=== PATIENT | female | born 1990 | race Caucasian/White ===

== ENCOUNTER → 2023-06-06 07:54 | Outpatient (REF) | payer BC, SELFPAY | LOC: PNTC 07:54 | PROVIDERS: ATTENDING PHYSICIAN Obstetrics & Gynecology | DX: O09.819 Supervision of pregnancy resulting from assisted reproductive technology, unspecified trimester (principal) | CPT/HCPCS: 76805 ==

== ENCOUNTER → 2023-07-04 13:30 | Outpatient (REF) | payer BC, SELFPAY | LOC: PNTC 13:30 | PROVIDERS: ATTENDING PHYSICIAN Obstetrics & Gynecology | DX: O09.819 Supervision of pregnancy resulting from assisted reproductive technology, unspecified trimester (principal) | CPT/HCPCS: 76811 ==

== ENCOUNTER → 2023-07-12 07:26 | Outpatient (REF) | payer BC, SELFPAY | LOC: PNTC 07:26 | PROVIDERS: ATTENDING PHYSICIAN Obstetrics & Gynecology | DX: O09.819 Supervision of pregnancy resulting from assisted reproductive technology, unspecified trimester (principal); O99.210 Obesity complicating pregnancy, unspecified trimester | CPT/HCPCS: 76815 ==

== ENCOUNTER 2023-08-02 17:14 | Observation (INO) | payer BC, SELFPAY ==
[2023-08-02 17:30] VITALS: BP 122/79; BMI 33.3
== END 2023-08-02 18:22 | disposition home or self-care (01) ==
LOC: LDRP 17:14
PROVIDERS: ADMITTING PHYSICIAN Obstetrics & Gynecology
DX: O36.8120 Decreased fetal movements, second trimester, not applicable or unspecified (principal); Z3A.24 24 weeks gestation of pregnancy; O99.282 Endocrine, nutritional and metabolic diseases complicating pregnancy, second trimester; E28.2 Polycystic ovarian syndrome; O09.812 Supervision of pregnancy resulting from assisted reproductive technology, second trimester
CPT/HCPCS: 59025; G0378

== ENCOUNTER → 2023-08-23 06:58 | Outpatient (REF) | payer BC, SELFPAY | LOC: PNTC 06:58 | PROVIDERS: ATTENDING PHYSICIAN Obstetrics & Gynecology | DX: O99.210 Obesity complicating pregnancy, unspecified trimester (principal); O09.819 Supervision of pregnancy resulting from assisted reproductive technology, unspecified trimester | CPT/HCPCS: 76816 ==

== ENCOUNTER → 2023-10-04 06:58 | Outpatient (REF) | payer BC, SELFPAY | LOC: PNTC 06:58 | PROVIDERS: ATTENDING PHYSICIAN Obstetrics & Gynecology | DX: O09.819 Supervision of pregnancy resulting from assisted reproductive technology, unspecified trimester (principal); O99.210 Obesity complicating pregnancy, unspecified trimester | CPT/HCPCS: 76816 ==

== ENCOUNTER → 2023-10-25 07:47 | Outpatient (REF) | payer BC, SELFPAY | LOC: PNTC 07:47 | PROVIDERS: ATTENDING PHYSICIAN Obstetrics & Gynecology | DX: O99.210 Obesity complicating pregnancy, unspecified trimester (principal); O09.819 Supervision of pregnancy resulting from assisted reproductive technology, unspecified trimester | CPT/HCPCS: 59025 ==

== ENCOUNTER 2023-11-01 07:35 | Inpatient (IN) | payer BC, SELFPAY ==
[2023-11-01 07:59] VITALS: BMI 38.6
[2023-11-01 09:38] LABS: % Basophils 0.3 % (0-2); % Eosinophils 0.8 % (0-6); % Immature Granulocytes 0.8 % (0-0.5); % Lymphocytes 14.9 % (20.5-51.1); % Monocytes 6.6 % (1.7-9.3); % Neutrophils 76.6 % (42.2-75.2); Absolute Eosinophils 0.1 10^3/uL (0-0.7); Absolute Immature Granulocytes 0.1 10^3/uL (0-0.05); Absolute Lymphocytes 1.6 10^3/uL (1.2-3.4); Absolute Monocytes 0.7 10^3/uL (0.1-0.6); Absolute Neutrophils 8.4 10^3/uL (1.4-6.5); Hematocrit 37.6 % (37.0-47.0); Hemoglobin 13.4 g/dL (12.0-16.0); Mean Corp Hgb Conc. 35.6 g/dL (33.0-37.0); Mean Corpuscular Hgb 31.8 pg (27.0-31.0); Mean Corpuscular Volume 89.1 fL (81.0-99.0); Nucleated Red Blood Cells % 0 %; Platelet Count 123 10^3/uL (130-400); Red Blood Cell Count 4.22 10^6/uL (4.20-5.40); Red Cell Dist. Width 13.2 % (11.5-14.5)
[2023-11-01 09:49] LABS: ALT (SGPT) 12 U/L (0-35); AST (SGOT) 24 U/L (14-36); Albumin 3.2 g/dl (3.5-5.0); Alkaline Phosphatase 224 U/L (38-126); Blood Urea Nitrogen 12 mg/dl (7-17); Calcium 9.5 mg/dl (8.4-10.2); Carbon Dioxide 18 mmol/L (22-30); Chloride 109 mmol/L (98-107); Estimated Creatinine Clearance > 125 ml/min; Glucose 85 mg/dl (70-99); Sodium 134 mmol/L (135-145); Total Protein 5.8 g/dl (6.3-8.2); eGFR > 60.00
[2023-11-01 10:54] LABS: Protein/creatinine Ratio 0.2; Urine Protein 10 mg/dl
[2023-11-01] MEDS: CYTOTEC 50 MICROGRAM VAG (11:32)
[2023-11-01] MEDS: CYTOTEC 50 MICROGRAM PO ×2 (17:23→21:16)
[2023-11-01 18:10] VITALS: BP 139/84
[2023-11-01] MEDS: LR 1000 IV (19:00)
[2023-11-02] MEDS: CYTOTEC 50 MICROGRAM PO ×3 (01:09→09:06)
[2023-11-02] MEDS: CYTOTEC PO (14:39)
[2023-11-02] MEDS: PITOCIN 30 UNITS/NSS 500 ML IV (14:54)
[2023-11-02] MEDS: LR 1000 IV (14:54)
[2023-11-02] MEDS: MORPHINE SULFATE 2 MG IV (21:48)
[2023-11-02] MEDS: SUBLIMAZE 100 MCG EPIDURAL (23:06)
[2023-11-02] MEDS: FENTANYL/BUPIVACAINE 100 EPIDURAL (23:06)
[2023-11-03] MEDS: TUMS 2 TABLET PO (03:21)
[2023-11-03] MEDS: LR 1000 IV (05:48)
[2023-11-03] MEDS: FENTANYL/BUPIVACAINE 100 EPIDURAL (05:49)
[2023-11-03] MEDS: ANCEF 10 IV (08:28)
[2023-11-03] MEDS: TYLENOL 1000 MG PO (08:28)
[2023-11-03] MEDS: BICITRA 30 ML PO (08:28)
[2023-11-03] MEDS: ZITHROMAX INFUSION 250 IV (08:47)
[2023-11-03 09:16] LABS: Cord ABG Comment CORD BLOOD
[2023-11-03 09:22] LABS: B.E. Cord ABG -3.6 mMOL/L; HCO3 Cord ABG 24.6 mmol/L; O2 Saturation % Cord ABG 14.8 %; PCO2 Cord ABG 56 mmHg; PO2 Cord ABG 10 mmHg; pH Cord ABG 7.25
[2023-11-03 09:25] LABS: HCO3 Cord ABG 22.6 mmol/L; O2 Saturation % Cord ABG 31.8 %; PCO2 Cord ABG 46 mmHg; PO2 Cord ABG 19 mmHg
[2023-11-03] MEDS: TORADOL 15 MG IV ×2 (11:25→17:57)
[2023-11-04] MEDS: TORADOL 15 MG IV ×2 (00:10→06:27)
[2023-11-04 05:08] LABS: Hematocrit 30.1 % (37.0-47.0); Hemoglobin 10.7 g/dL (12.0-16.0); Mean Corp Hgb Conc. 35.5 g/dL (33.0-37.0); Mean Corpuscular Hgb 32.1 pg (27.0-31.0); Mean Corpuscular Volume 90.4 fL (81.0-99.0); Platelet Count 115 10^3/uL (130-400); Red Blood Cell Count 3.33 10^6/uL (4.20-5.40); Red Cell Dist. Width 13.2 % (11.5-14.5); White Blood Cell Count 21.1 10^3/uL (4.8-10.8)
--- NOTE | 2023-11-04 08:12 | W.PN.ANS.POP ---
Anesthesia Post Operative
- Anesthesia Post Op Note
Vital Signs Stable-See Nursing Note: Yes
Airway Patent: Yes
Adequate Pain Control: Yes
Change in Mental Status: No
Current Postoperative Nausea & Vomiting: No
Anesthesia Complications: No
General Anesthetic Recall: No
Unplanned Admission: No
Post Op Hydration Adequate: Yes
[2023-11-04] MEDS: TYLENOL 650 MG PO (12:09)
[2023-11-04] MEDS: SENOKOT-S 1 TABLET PO (12:09)
[2023-11-04] MEDS: MOTRIN 600 MG PO ×2 (12:09→20:39)
[2023-11-04] MEDS: PRENATAL PLUS 1 TABLET PO (12:11)
[2023-11-04] MEDS: PERCOCET 5/325 1 TABLET PO ×2 (15:40→20:39)
[2023-11-05] MEDS: PERCOCET 5/325 1 TABLET PO ×2 (01:05→07:25)
[2023-11-05] MEDS: MOTRIN 600 MG PO ×2 (02:50→09:44)
[2023-11-05] MEDS: PRENATAL PLUS 1 TABLET PO ×2 (07:25→09:43)
[2023-11-05] MEDS: SENOKOT-S 1 TABLET PO (07:25)
[2023-11-05] MEDS: MYLICON 80 MG PO (09:43)
--- NOTE | 2023-11-05 11:32 | W.DS.TRANS ---
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
-
Discharge Instructions:
Discharge Diagnosis/Procedures term , delivered; Gestational
hypertension; s/p PLTCS
Instructions:
Stand-Alone Forms: [facility] Delivery
[facility] Hypertensive Disorders
Changes to Home Medications: Yes
Discharge Medications:
DC Medications w/original date entered in [facility]
1 tab PO DAILY 08/02/23
acetaminophen 325 mg tablet 650 mg (2 x 325 mg) PO Q4HPRN PRN mild pain #0 tabs 11/05/23
ibuprofen 600 mg tablet 600 mg PO Q6HPRN PRN cramps #60 tabs 11/05/23
oxycodone 5 mg tablet 5 mg PO Q4H PRN pain not controlled with motrin and tylenol #5 tabs 11/05/23
sennosides 8.6 mg-docusate sodium 50 mg tablet (Stool Softener-Laxative) 1 tab PO DAILYPRN PRN constipation #0 tabs 11/05/23
Home Medication Changes
You may stop taking Aspirin.
Pending Results: No
Total time spent discharging patient (in min): 20
[2023-11-07 16:07] LABS: Syphilis/T. pallidum Ab Reflex Negative (Negative)
== END 2023-11-05 17:44 | disposition home or self-care (01) | DRG 787 ==
LOC: LDRP 07:35
PROVIDERS: Obstetrics & Gynecology; ADMITTING PHYSICIAN Obstetrics & Gynecology; ATTENDING PHYSICIAN Obstetrics & Gynecology
PROC: 3E0P7VZ Introduction of Hormone into Female Reproductive, Via Natural or Artificial Opening (ICD-10-PCS; 2023-11-01)
PROC: 3E0DXGC Introduction of Other Therapeutic Substance into Mouth and Pharynx, External Approach (ICD-10-PCS; 2023-11-01)
PROC: 3E033VJ Introduction of Other Hormone into Peripheral Vein, Percutaneous Approach (ICD-10-PCS; 2023-11-02)
PROC: 10D00Z1 Extraction of Products of Conception, Low, Open Approach (ICD-10-PCS; 2023-11-03)
PROC: 6A550ZT Pheresis of Cord Blood Stem Cells, Single (ICD-10-PCS; 2023-11-03)
DX: O14.04 Mild to moderate pre-eclampsia, complicating childbirth (principal); O99.12 Other diseases of the blood and blood-forming organs and certain disorders involving the immune mechanism complicating childbirth; O99.284 Endocrine, nutritional and metabolic diseases complicating childbirth; E28.2 Polycystic ovarian syndrome; Z3A.37 37 weeks gestation of pregnancy; Z37.0 Single live birth; N97.9 Female infertility, unspecified; O99.214 Obesity complicating childbirth; O76 Abnormality in fetal heart rate and rhythm complicating labor and delivery; O77.0 Labor and delivery complicated by meconium in amniotic fluid; D69.59 Other secondary thrombocytopenia
CPT/HCPCS: 88307; 59025; 76816; 80053; 82570; 82803; 84156; 85025; 85027; 86780; 86850; 86900; 86901

== ENCOUNTER 2023-11-12 23:46 | Inpatient (IN) | payer BC, SELFPAY ==
[2023-11-12 22:51] VITALS: BP 153/90
[2023-11-12 23:01] VITALS: BP 153/88
[2023-11-12 23:06] LABS: % Basophils 0.7 % (0-2); % Eosinophils 2.3 % (0-6); % Immature Granulocytes 0.6 % (0-0.5); % Lymphocytes 38.5 % (20.5-51.1); % Monocytes 6.4 % (1.7-9.3); % Neutrophils 51.5 % (42.2-75.2); Absolute Basophils 0.1 10^3/uL (0-0.2); Absolute Eosinophils 0.2 10^3/uL (0-0.7); Absolute Immature Granulocytes 0.1 10^3/uL (0-0.05); Absolute Lymphocytes 3.4 10^3/uL (1.2-3.4); Absolute Monocytes 0.6 10^3/uL (0.1-0.6); Absolute Neutrophils 4.5 10^3/uL (1.4-6.5); Hematocrit 33.8 % (37.0-47.0); Mean Corp Hgb Conc. 35.5 g/dL (33.0-37.0); Mean Corpuscular Hgb 31.4 pg (27.0-31.0); Mean Corpuscular Volume 88.5 fL (81.0-99.0); Mean Platelet Volume 11.4 fL (7.4-10.4); Nucleated Red Blood Cells % 0 %; Platelet Count 315 10^3/uL (130-400); Red Blood Cell Count 3.82 10^6/uL (4.20-5.40); Red Cell Dist. Width 13.1 % (11.5-14.5); White Blood Cell Count 8.7 10^3/uL (4.8-10.8)
[2023-11-12 23:15] VITALS: BP 146/92
[2023-11-12 23:25] LABS: ALT (SGPT) 12 U/L (0-35); AST (SGOT) 22 U/L (14-36); Albumin 3.5 g/dl (3.5-5.0); Alkaline Phosphatase 147 U/L (38-126); Blood Urea Nitrogen 12 mg/dl (7-17); Calcium 8.7 mg/dl (8.4-10.2); Carbon Dioxide 23 mmol/L (22-30); Chloride 111 mmol/L (98-107); Estimated Creatinine Clearance > 125 ml/min; Glucose 103 mg/dl (70-99); Potassium 4.4 mmol/L (3.5-5.1); Sodium 142 mmol/L (135-145); Total Bilirubin 0.3 mg/dl (0.2-1.3); eGFR > 60.00
[2023-11-12 23:30] VITALS: BP 157/101
[2023-11-12] MEDS: HEPARIN 5000 UNITS SC (23:44)
[2023-11-12 23:45] VITALS: BP 160/98
--- NOTE | 2023-11-13 01:17 | ED TECH ---
Patient assigned to [facility] Room 212-02.
[2023-11-13 01:35] VITALS: BP 130/71; BP 153/90
[2023-11-13] MEDS: SUBLIMAZE 50 MCG IV ×2 (01:42→01:57)
[2023-11-13 01:50] VITALS: BP 145/86
[2023-11-13 01:57] VITALS: BP 149/92
[2023-11-13 02:00] VITALS: BP 154/92
[2023-11-13] MEDS: DEMEROL 12.5 MG IV ×2 (02:12→02:30)
--- NOTE | 2023-11-13 02:12 | W.IMMPOSTOP ---
Surgical Immed Post Op Note
-
Primary Surgeon: Marielena Ramírez DO
Assisting Surgeon: none
Pre-op Diagnosis: Wound dehiscence s/p LTCS POD#9
Post-op Diagnosis: same
Procedure Performed: Exploratory laparotomy, repair of wound dehiscence
Anesthesia Type: general ET Dr. Stockton
Specimen / Cultures: none
Estimated Blood Loss: 10ml
Complications: none
IVF: Invanz 1gram preop
Operative Findings: Wound dehiscence with bowel evisceration. Healthy pink appearing bowel.
Counts correct times 2.
Stable to recovery.
[2023-11-13 02:15] VITALS: BP 160/94
[2023-11-13 02:30] VITALS: BP 137/91
[2023-11-13] MEDS: NSS 1000 IV (02:43)
[2023-11-13 03:19] VITALS: BMI 34.4
[2023-11-13] MEDS: ROXICODONE 5 MG PO ×3 (05:11→21:17)
--- NOTE | 2023-11-13 06:58 | W.PN.OBG.DWH ---
Today's Communication / Plan
-
CT PE study
AM labs
SCDs.
Clear diet
OOB today
Assessment/Plan
-
A/P: S/P exp lap, repair of wound dehiscence
SOB- ordered CT PE study. EKG NSR
Postsurgical care.
Clear diet
SCDs.
Will maintain patel for now until back from PE study.
Check am labs
Subjective Data
-
Postop check:
PT reported to RN that she feels chest heaviness. No chest pain. Having some abdominal pain. No N/V.
Objective Data
-
Laboratory Results
11/13/23 08:00
11/13/23 08:00
Vital Signs
Temp Pulse Resp BP Pulse Ox
98.3 F 112 18 137/91 92
11/13/23 02:30 11/13/23 02:30 11/13/23 02:30 11/13/23 02:30 11/13/23 02:30
VSS afeb Temp 98.3
Cor regular
Pulm: clear
Abd: soft, hypoactive BS, dressing in place
Ext: LE edema
[2023-11-13 07:09] LABS: % Basophils 0.2 % (0-2); % Eosinophils 0.2 % (0-6); % Immature Granulocytes 0.8 % (0-0.5); % Lymphocytes 4.3 % (20.5-51.1); % Neutrophils 93.5 % (42.2-75.2); Absolute Immature Granulocytes 0.1 10^3/uL (0-0.05); Absolute Lymphocytes 0.6 10^3/uL (1.2-3.4); Absolute Monocytes 0.1 10^3/uL (0.1-0.6); Absolute Neutrophils 13.5 10^3/uL (1.4-6.5); Hematocrit 33.6 % (37.0-47.0); Hemoglobin 11.6 g/dL (12.0-16.0); Mean Corp Hgb Conc. 34.5 g/dL (33.0-37.0); Mean Corpuscular Hgb 31.1 pg (27.0-31.0); Mean Corpuscular Volume 90.1 fL (81.0-99.0); Mean Platelet Volume 11.3 fL (7.4-10.4); Nucleated Red Blood Cells % 0 %; Platelet Count 289 10^3/uL (130-400); Red Blood Cell Count 3.73 10^6/uL (4.20-5.40); Red Cell Dist. Width 13.1 % (11.5-14.5); White Blood Cell Count 14.4 10^3/uL (4.8-10.8)
[2023-11-13] MEDS: LR 1000 IV ×2 (07:12→13:06)
[2023-11-13] MEDS: MOTRIN 600 MG PO ×2 (07:21→17:49)
[2023-11-13 07:31] LABS: ALT (SGPT) 11 U/L (0-35); AST (SGOT) 23 U/L (14-36); Albumin 3.4 g/dl (3.5-5.0); Alkaline Phosphatase 143 U/L (38-126); Blood Urea Nitrogen 10 mg/dl (7-17); Carbon Dioxide 19 mmol/L (22-30); Chloride 110 mmol/L (98-107); Estimated Creatinine Clearance 125 ml/min; Glucose 115 mg/dl (70-99); Potassium 4.5 mmol/L (3.5-5.1); Sodium 139 mmol/L (135-145); Total Bilirubin 0.4 mg/dl (0.2-1.3); Total Protein 5.9 g/dl (6.3-8.2); eGFR > 60.00
[2023-11-13] MEDS: PRENATAL PLUS 1 TABLET PO (07:59)
[2023-11-13] MEDS: NSS (PRESERVATIVE FREE) 8 ML IV ×2 (07:59→20:03)
[2023-11-13] MEDS: PEPCID 20 MG IV ×2 (07:59→20:02)
[2023-11-13] MEDS: NSS IV ×2 (08:06→16:31)
--- NOTE | 2023-11-13 10:09 | W.PN.OBG.DWH ---
Today's Communication / Plan
-
wean off O2, incentive spirometry
dc patel
continue with abx
adv diet
Assessment/Plan
-
POcheck fascial dehiscence, POD#10 primary cs
Subjective Data
-
taking analg
Objective Data
-
Laboratory Results
11/13/23 08:00
11/13/23 08:00
Vital Signs
Temp Pulse Resp BP Pulse Ox
98.3 F 112 18 137/91 92
11/13/23 02:30 11/13/23 02:30 11/13/23 02:30 11/13/23 02:30 11/13/23 02:30
lungs cl
cor rrr
abd decr bs, bandage in place, abd binder replaced
ext athrombics
wbc 14.4, hgb 11.6 Plts 289
Na 139, K 4.5 bun 10, crezt 0.7, glc 115
CT chest neg for pe
[2023-11-13] MEDS: LOVENOX 40 MG SC (17:49)
[2023-11-13] MEDS: INVANZ 60 MG IV (23:58)
[2023-11-14] MEDS: MOTRIN 600 MG PO ×4 (00:22→23:47)
[2023-11-14] MEDS: MYLICON 80 MG PO ×2 (00:22→11:51)
[2023-11-14] MEDS: LR 1000 IV ×2 (01:52→10:10)
[2023-11-14] MEDS: ROXICODONE 5 MG PO (05:01)
[2023-11-14 05:30] LABS: % Basophils 0.3 % (0-2); % Eosinophils 0.8 % (0-6); % Immature Granulocytes 0.5 % (0-0.5); % Lymphocytes 21.1 % (20.5-51.1); % Monocytes 8.9 % (1.7-9.3); % Neutrophils 68.4 % (42.2-75.2); Absolute Eosinophils 0.1 10^3/uL (0-0.7); Absolute Lymphocytes 1.8 10^3/uL (1.2-3.4); Absolute Monocytes 0.8 10^3/uL (0.1-0.6); Hematocrit 30.4 % (37.0-47.0); Hemoglobin 10.6 g/dL (12.0-16.0); Mean Corp Hgb Conc. 34.9 g/dL (33.0-37.0); Mean Corpuscular Hgb 31.5 pg (27.0-31.0); Mean Corpuscular Volume 90.5 fL (81.0-99.0); Mean Platelet Volume 11.3 fL (7.4-10.4); Nucleated Red Blood Cells % 0 %; Platelet Count 208 10^3/uL (130-400); Red Blood Cell Count 3.36 10^6/uL (4.20-5.40); White Blood Cell Count 8.7 10^3/uL (4.8-10.8)
[2023-11-14 05:50] LABS: ALT (SGPT) < 10 U/L (0-35); AST (SGOT) 17 U/L (14-36); Alkaline Phosphatase 124 U/L (38-126); Blood Urea Nitrogen 10 mg/dl (7-17); Calcium 8.6 mg/dl (8.4-10.2); Carbon Dioxide 25 mmol/L (22-30); Chloride 105 mmol/L (98-107); Estimated Creatinine Clearance 125 ml/min; Glucose 91 mg/dl (70-99); Potassium 4.1 mmol/L (3.5-5.1); Sodium 134 mmol/L (135-145); Total Bilirubin 0.9 mg/dl (0.2-1.3); Total Protein 5.2 g/dl (6.3-8.2); eGFR > 60.00
--- NOTE | 2023-11-14 07:16 | W.PN.UPDATE ---
Update Note
Progress Note Update
Came to see patient and express sympathy and concern for the complication. Patient sitting up in chair, no complaints. Discussed the complication, patient questions answered. Reassurance and emotional support given.
[2023-11-14] MEDS: PRENATAL PLUS 1 TABLET PO (07:43)
[2023-11-14] MEDS: FLUSH (NSS) 1 FLUSH IV ×2 (09:59→20:17)
[2023-11-14] MEDS: PEPCID 20 MG IV (10:01)
[2023-11-14] MEDS: SENOKOT-S 1 TABLET PO (11:51)
--- NOTE | 2023-11-14 12:43 | W.PN.OBG.DWH ---
Today's Communication / Plan
-
will get input from Dr. Steen regarding recommendation for continuation of antibiotic therapy
advance diet as tolerated
monitor for void
Assessment/Plan
-
33yo POD#1 s/p Exp Lap, wound closure for fascial dehiscence
-afvss
-continue pain control as needed
-patient without n/v and has return of bowel function, thus will advance diet
-currently ordered for ertapenem antibiotic Q24H
-monitor for spontaneous void now that patel is removed
-encouraged a little OOB today
-will remove bandage in AM
-abdominal binder while OOB
Subjective Data
-
some soreness over the incision/abdomen. tolerating clears diet. +flatus, patel removed this morning. No OOB yet
Objective Data
-
Laboratory Results
11/14/23 04:53
11/14/23 04:53
Vital Signs
Temp Pulse Resp BP Pulse Ox
98.3 F 112 18 137/91 92
11/13/23 02:30 11/13/23 02:30 11/13/23 02:30 11/13/23 02:30 11/13/23 02:30
Gen: nad [email or web address]
Abd: soft, nt, nd, +soft bowel sounds. no r/g.
incision: bandage in place
Ext: no LE ttp
[2023-11-14] MEDS: TYLENOL 650 MG PO ×3 (12:51→23:46)
[2023-11-14] MEDS: NSS (PRESERVATIVE FREE) 8 ML IV (12:52)
--- NOTE | 2023-11-14 15:28 | CM ---
Case management following for d/c planning
Met with pt at bedside to complete initial assessment
Pt lives in a split level home with her and son
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 Has family support post delivery
DME - breast pump
SNF/HH - no hx
PCP - Dr Frederick at [facility]
Pharm - [facility]
CM will follow for d/c needs
Plan - anticipate home no needs vs w/HH
[2023-11-14] MEDS: LOVENOX 40 MG SC (17:20)
[2023-11-14] MEDS: PEPCID IV (20:15)
[2023-11-14] MEDS: NSS (PRESERVATIVE FREE) IV (20:15)
--- NOTE | 2023-11-14 20:30 | W.PN.UPDATE ---
Update Note
Progress Note Update
Per Dr. Steen, okay to d/c antibiotic. Will give one more dose today then d/c.
Throughout today patient has tolerated a regular diet, continues to have normal bowel function, no n/v/bloating and has been OOB to void without difficulty. says it gets easier every time to get up. Pain is being manage with motrin and tylenol.
Vitals: 140/89> 130/69. P102, R16 T98.0
Continue current mgmt. Will remove bandage in AM but advised will keep jayesh in at least until the end of the week.
likely will be okay for dc tomorrow.
[2023-11-14] MEDS: INVANZ 60 MG IV (23:47)
[2023-11-15 04:13] LABS: % Basophils 0.3 % (0-2); % Eosinophils 3.2 % (0-6); % Immature Granulocytes 0.4 % (0-0.5); % Lymphocytes 16.4 % (20.5-51.1); % Monocytes 6.4 % (1.7-9.3); % Neutrophils 73.3 % (42.2-75.2); Absolute Eosinophils 0.3 10^3/uL (0-0.7); Absolute Lymphocytes 1.5 10^3/uL (1.2-3.4); Absolute Monocytes 0.6 10^3/uL (0.1-0.6); Absolute Neutrophils 6.7 10^3/uL (1.4-6.5); Hematocrit 30.8 % (37.0-47.0); Hemoglobin 10.6 g/dL (12.0-16.0); Mean Corp Hgb Conc. 34.4 g/dL (33.0-37.0); Mean Corpuscular Hgb 32.3 pg (27.0-31.0); Mean Corpuscular Volume 93.9 fL (81.0-99.0); Mean Platelet Volume 11.5 fL (7.4-10.4); Nucleated Red Blood Cells % 0 %; Platelet Count 194 10^3/uL (130-400); Red Blood Cell Count 3.28 10^6/uL (4.20-5.40); Red Cell Dist. Width 12.8 % (11.5-14.5); White Blood Cell Count 9.1 10^3/uL (4.8-10.8)
[2023-11-15 04:35] LABS: ALT (SGPT) < 10 U/L (0-35); AST (SGOT) 15 U/L (14-36); Albumin 2.7 g/dl (3.5-5.0); Alkaline Phosphatase 113 U/L (38-126); Blood Urea Nitrogen 8 mg/dl (7-17); Calcium 8.4 mg/dl (8.4-10.2); Carbon Dioxide 28 mmol/L (22-30); Chloride 105 mmol/L (98-107); Estimated Creatinine Clearance > 125 ml/min; Glucose 98 mg/dl (70-99); Sodium 136 mmol/L (135-145); Total Bilirubin 0.7 mg/dl (0.2-1.3); eGFR > 60.00
[2023-11-15] MEDS: TYLENOL 650 MG PO (05:57)
[2023-11-15] MEDS: MOTRIN 600 MG PO (05:57)
[2023-11-15] MEDS: NSS (PRESERVATIVE FREE) IV (09:41)
[2023-11-15] MEDS: PEPCID IV (09:41)
[2023-11-15] MEDS: PRENATAL PLUS 1 TABLET PO (09:42)
[2023-11-15] MEDS: SENOKOT-S 1 TABLET PO (10:01)
[2023-11-15] MEDS: MYLICON 80 MG PO (10:01)
--- NOTE | 2023-11-15 12:00 | W.PN.GYN ---
Today's Communication / Plan
-
-Stable for D/c home
-abdominal binder while OOB
-Wound care, limitations, return precautions all reviewed with patient. She will schedule a follow-up for staple removal in the office on Monday, and another wound check in about 2wks.
Physician Note
-
Patient doing really well today. Ambulating, voiding without issue, passing flatus, pain well-controlled. VB minimal. Tolerating reg diet, denies n/v. Denies CP, SOB, leg pain. Denies f/c. Denies BOLES, visual changes, RUQ pain.
VSS-- BPs normal with an occasional mild-range BP
Gen: NAD, WD/WN
Abd: soft, NTTP, ND
Incision-- bandage removed, packing present between jayesh-- removed, steri-strips placed between jayesh.
Labs- see below
33yo POD#2 s/p Exp Lap, wound closure for fascial dehiscence (s/p PLTCS on 11/03/23). Afebrile and doing well.
H/o GHTN-- asymptomatic, no si/sx of pre-e.
-Stable for D/c home
-abdominal binder while OOB
-Wound care, limitations, return precautions all reviewed with patient. She will schedule a follow-up for staple removal in the office on Monday, and another wound check in about 2wks.
JBraden, DO
Vital Signs / Labs
-
Vital Signs and Labs:
Temp Pulse Resp BP Pulse Ox
98.3 F 112 18 137/91 92
11/13/23 02:30 11/13/23 02:30 11/13/23 02:30 11/13/23 02:30 11/13/23 02:30
11/15/23 03:48
11/15/23 03:48
11/15/23
03:48
RBC 3.28 L
Hgb 10.6 L
Hct 30.8 L
MCH 32.3 H
MPV 11.5 H
Absolute Neuts (auto) 6.7 H
Lymphocytes % 16.4 L
Total Protein 5.0 L
Albumin 2.7 L
--- NOTE | 2023-11-15 12:08 | W.DS.TRANS ---
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
-
Discharge Instructions:
Discharge Diagnosis/Procedures post-op incisional dehiscence, s/p ex-lap/
fascial repair
Instructions:
Stand-Alone Forms: [facility] Discharge
Changes to Home Medications: No
Discharge Medications:
DC Medications w/original date entered in [facility]
1 tab PO DAILY 08/02/23
ibuprofen 600 mg tablet 600 mg PO Q6HPRN PRN cramps #60 tabs 11/05/23
acetaminophen 325 mg tablet 650 mg (2 x 325 mg) PO Q4HPRN PRN mild pain #0 tabs 11/15/23
sennosides 8.6 mg-docusate sodium 50 mg tablet (Stool Softener-Laxative) 1 tab PO DAILYPRN PRN constipation #0 tabs 11/15/23
Home Medication Changes
none
Pending Results: No
Total time spent discharging patient (in min): 40
== END 2023-11-15 12:47 | disposition home or self-care (01) | DRG 769 ==
LOC: LDRP 23:46
PROVIDERS: Emergency Medicine; ADMITTING PHYSICIAN Obstetrics & Gynecology; ATTENDING PHYSICIAN Obstetrics & Gynecology
PROC: 0JB80ZZ Excision of Abdomen Subcutaneous Tissue and Fascia, Open Approach (ICD-10-PCS; 2023-11-13)
PROC: 0JQ80ZZ Repair Abdomen Subcutaneous Tissue and Fascia, Open Approach (ICD-10-PCS; 2023-11-13)
DX: O90.0 Disruption of cesarean delivery wound (principal); O13.5 Gestational [pregnancy-induced] hypertension without significant proteinuria, complicating the puerperium; O99.285 Endocrine, nutritional and metabolic diseases complicating the puerperium; E28.2 Polycystic ovarian syndrome; O99.215 Obesity complicating the puerperium
CPT/HCPCS: 71275; 80053; 85025; 86850; 86900; 86901; 93005; 96374; 99283; J1335; Q9967